=== PATIENT | female | born 1955 | race Caucasian/White ===

== ENCOUNTER 2019-01-13 19:51 | Inpatient (IN) | payer OTHER ==
[2019-01-13 21:16] LABS: Anisocytosis Slight; Basophils % (A) 1 %; Eosinophils # (A) 0.1 k/uL (0-0.7); Eosinophils % (A) 3 %; HCT 35.7 % (34.0-46.0); HGB 11.4 gm/dL (11.4-16.0); Hypochromasia Slight; Lymphocytes # (A) 1.5 k/uL (1.0-4.8); Lymphocytes % (A) 34 %; MCH 28.4 pg (25.0-35.0); MCV 88.8 fL (80.0-100.0); Mean Platelet Volume 7.1; Monocytes # (A) 0.3 k/uL (0-1.0); Monocytes % (A) 7 %; Neutrophils # (A) 2.4 k/uL (1.3-7.7); Neutrophils % (A) 53 %; Platelet Count 206 k/uL (150-450); RBC 4.02 m/uL (3.80-5.40); RDW 16.4 % (11.5-15.5); WBC 4.4 k/uL (3.8-10.6)
[2019-01-13 21:17] LABS: Albumin 3.4 g/dL (3.5-5.0); Calcium 8.8 mg/dL (8.4-10.2); Potassium 5.3 mmol/L (3.5-5.1); Total Bilirubin 0.7 mg/dL (0.2-1.3); Total Protein 6.5 g/dL (6.3-8.2)
--- NOTE | 2019-01-13 21:23 | ED ---
Skin/Abscess/FB HPI - General Source: patient Mode of arrival: ambulatory Limitations: no limitations <Bridget Conklin - Last Filed: 01/14/19 01:04> <Porfirio Dozier - Last Filed: 01/14/19 08:32> - General Chief complaint: Skin/Abscess/Foreign Body Stated complaint: rt toe infection Time Seen by Provider: 01/13/19 20:25 - History of Present Illness Initial comments: 63-year-old female patient with past medical history significant for diabetes mellitus, neuropathy, presents to the emergency department today for evaluation of infection to the right fourth toe. Patient states that she has had the infection for quite some time. States that she has seen both infectious disease and a web marketing manager. Their plan was to administer IV antibiotics however her insurance would not cover the antibiotic. States that the web marketing manager wanted to amputate the toe however is going out of town. Both the infectious disease doctor and her primary care physician recommended she present to the emergency department for further evaluation and IV antibiotics. Patient states that there is some pain to the toe however she does have neuropathy. Patient denies any drainage from the wound surrounding the toe. Denies any fever or chills. Patient denies any recent rash, shortness breath, chest pain, abdominal pain, nausea, vomiting, diarrhea, constipation, back pain, numbness, tingling, dizziness, weakness, hematuria, dysuria, urinary urgency, urinary frequency, headache, visual changes, or any other complaints. (Bridget Conklin) - Related Data Home Medications Medication Instructions Recorded Confirmed Aspirin EC [Ecotrin Low Dose] 81 mg PO DAILY 01/13/19 01/13/19 Furosemide [Lasix] 20 - 40 mg PO BID PRN 01/13/19 01/13/19 Allergies Allergy/AdvReac Type Severity Reaction Status Date / Time ciprofloxacin [From Cipro] Allergy Vomiting Verified 01/13/19 21:26 Penicillins Allergy Unknown Verified 01/13/19 21:26 Childhood Review of Systems ROS Other: All systems not noted in ROS Statement are negative. <Bridget Conklin - Last Filed: 01/14/19 01:04> ROS Other: All systems not noted in ROS Statement are negative. <Porfirio Dozier - Last Filed: 01/14/19 08:32> ROS Statement: Those systems with pertinent positive or pertinent negative responses have been documented in the HPI. 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 Vital signs upon presentation are temperature 98.4F, pulse 92, respirations 18, blood pressure 141/89, pulse ox 98% on room air.) Eye exam: Present: normal appearance, PERRL, EOMI. Absent: scleral icterus, conjunctival injection, periorbital swelling ENT exam: Present: normal exam, normal oropharynx, mucous membranes moist Respiratory exam: Present: normal lung sounds bilaterally. Absent: respiratory distress, wheezes, rales, rhonchi, stridor Cardiovascular Exam: Present: regular rate, normal rhythm, normal heart sounds. Absent: systolic murmur, diastolic murmur, rubs, gallop, clicks GI/Abdominal exam: Present: soft, normal bowel sounds. Absent: distended, tenderness, guarding, rebound, rigid Extremities exam: Present: full ROM, normal capillary refill, other (There is erythema and general swelling noted to the right fourth toe. There are ulcerations noted at the base of the toe. No drainage. Skin is otherwise pink, warm, dry. Cap refill is less than 3 seconds. Pedal pulses 2+ and equal bilaterally.). Absent: normal inspection, tenderness, pedal edema, joint swelling, calf tenderness Neurological exam: Present: alert, oriented X3, CN II-XII intact Psychiatric exam: Present: normal affect, normal mood Skin exam: Present: warm, dry, intact, normal color. Absent: rash <Bridget Conklin M - Last Filed: 01/14/19 01:04> Course Vital Signs 01/13/19 01/13/19 01/13/19 19:57 20:03 23:45 Temperature 98.4 F 98.4 F Pulse Rate 92 89 87 Respiratory 18 16 17 Rate Blood Pressure 141/89 147/104 147/104 O2 Sat by Pulse 98 96 96 Oximetry 01/14/19 01/14/19 01:10 01:26 Temperature Pulse Rate 60 88 Respiratory 16 Rate Blood Pressure 157/112 153/106 O2 Sat by Pulse 97 Oximetry Medical Decision Making - Lab Data Result diagrams: 01/13/19 20:59 01/13/19 20:59 - Radiology Data Radiology results: report reviewed, image reviewed <Bridget Conklin - Last Filed: 01/14/19 01:04> - Lab Data Result diagrams: 01/14/19 06:02 01/14/19 06:02 <Porfirio Dozier - Last Filed: 01/14/19 08:32> - Medical Decision Making 63-year-old female patient presented to the emergency department today for evaluation of infection to the right fourth toe. Physical examination did revea l erythema, swelling to the toe. X-ray was performed and showed evidence for osteomyelitis. Labs reviewed and are relatively unremarkable. Case was discussed with the on-call vascular surgeon Dr. Weller who agrees to admit patient for possible amputation. Patient will be started on IV antibiotics for osteomyelitis. Infectious disease will be consulted. Dr. [place] from [facility] group is accepting for medical admission. (Bridget Conklin) I saw this patient in conjunction with the physician physiotherapy assistant. I performed independent history and physical exam. Agree with case management. (Porfirio Dozier) - Lab Data Lab Results 01/13/19 01/13/19 Range/Units 20:59 20:59 WBC 4.4 (3.8-10.6) k/uL RBC 4.02 (3.80-5.40) m/uL Hgb 11.4 (11.4-16.0) gm/dL Hct 35.7 (34.0-46.0) % MCV 88.8 (80.0-100.0) fL MCH 28.4 (25.0-35.0) pg MCHC 32.0 (31.0-37.0) g/dL RDW 16.4 H (11.5-15.5) % Plt Count 206 (150-450) k/uL Neutrophils % 53 % Lymphocytes % 34 % Monocytes % 7 % Eosinophils % 3 % Basophils % 1 % Neutrophils # 2.4 (1.3-7.7) k/uL Lymphocytes # 1.5 (1.0-4.8) k/uL Monocytes # 0.3 (0-1.0) k/uL Eosinophils # 0.1 (0-0.7) k/uL Basophils # 0.0 (0-0.2) k/uL Hypochromasia Slight Anisocytosis Slight Sodium 141 (137-145) mmol/L Potassium 5.3 H (3.5-5.1) mmol/L Chloride 109 H (98-107) mmol/L Carbon Dioxide 22 (22-30) mmol/L Anion Gap 10 mmol/L BUN 33 H (7-17) mg/dL Creatinine 2.06 H (0.52-1.04) mg/dL Est GFR (CKD-EPI)AfAm 29 (>60 ml/min/1.73 sqM) Est GFR (CKD-EPI)NonAf 25 (>60 ml/min/1.73 sqM) Glucose 128 H (74-99) mg/dL Calcium 8.8 (8.4-10.2) mg/dL Total Bilirubin 0.7 (0.2-1.3) mg/dL AST 30 (14-36) U/L ALT 19 (9-52) U/L Alkaline Phosphatase 64 (38-126) U/L Total Protein 6.5 (6.3-8.2) g/dL Albumin 3.4 L (3.5-5.0) g/dL - Radiology Data 3 views of the right fourth digit of the right foot were obtained. Report was reviewed in its entirety. Impression by Dr. Shearer shows extensive soft tissue swelling of the fourth digit circumferentially osseous erosion/resorption of the mid and proximal phalanges of the fourth digit, likely on the basis of osteomyelitis. (Bridget Conklin) Disposition Decision to Admit Reason: Admit from EC Decision Date: 01/14/19 Decision Time: 00:45 <Bridget Conklin - Last Filed: 01/14/19 01:04> <Porfirio Dozier - Last Filed: 01/14/19 08:32> Clinical Impression: Osteomyelitis of fourth toe of right foot Disposition: ADMITTED IP TO THIS [facility] Condition: Serious
--- NOTE | 2019-01-13 21:28 | XR ---
EXAMINATION TYPE: XR toes RT DATE OF EXAM: 01/13/2019 COMPARISON: NONE HISTORY: Pain and swelling in the fourth toe. Diabetic ulcer. TECHNIQUE: 3 views of the fourth digit of the right foot were obtained FINDINGS: There is diffuse circumferential soft tissue swelling of the fourth digit with osseous eros ion and destruction of the middle and proximal phalanges. The proximal phalanx space is maintained. V isualized portions of the third and fifth digits remain intact with old fracture deformity or arthrop athy of the distal third metatarsal head. No subcutaneous emphysema or radiopaque foreign body. IMPRESSION: Extensive soft tissue swelling of the fourth digit circumferentially and osseous erosion/ resorption of the mid and proximal phalanges of the fourth digit, likely on the basis of osteomyeliti s.
[2019-01-13] MEDS ORDERED: VANCOMYCIN IV PER PHARMACY 1 EACH MISC MISCELLANE PRN (23:49)
[2019-01-13] MEDS ORDERED: NALOXONE 0.4 MG/ML 1 ML VIAL IV PRN (23:50)
[2019-01-13] MEDS ORDERED: VANCOMYCIN 1,500 MG in SODIUM CHLORIDE 0.9% 250 ML IVPB STA (23:51)
[2019-01-14] MEDS: SODIUM CHLORIDE 0.9% 1,000 ML IV SCH ×2 (00:28→20:27)
[2019-01-14] MEDS ORDERED: LISINOPRIL 20 MG TAB PO STA (00:41)
[2019-01-14] MEDS ORDERED: FUROSEMIDE 20 MG TAB PO STA (00:41)
--- NOTE | 2019-01-14 04:52 | P.HPIM ---
History of Present Illness H&P Date: 01/14/19 Chief Complaint: Right toe infection The patient is a 63-year-old female patient with past medical history significant for MS, coronary artery disease with stenting 1, ischemic cardiomyopathy , systolic CHF with last known ejection fraction of 45%, diet-controlled diabetes mellitus, peripheral neuropathy and chronic kidney disease presents to the emergency department today for evaluation of infection to the right fourth toe. Patient states that she has had the infection for approximately 6 weeks, reports she was initially seen by her PCP ANGELI Shelton and was started on antibiotics 1 of which was Bactrim, she subsequently followed up with her child care sitter who instructed her not to take Bactrim due to concern for worsening kidney function. The patient followed up with infectious disease energy consultant in [place] on Wednesday and their plan was to administer IV antibiotics however her insurance would not cover the antibiotic. On the patient saw podiatry who recommended amputation of the toe however is going out of town. Both the infectious disease doctor and her primary care physician recommended she present to the emergency department for further evaluation and IV antibiotics. Patient states that there is some pain to the toe however she does have neuropathy. Patient denies any drainage from the wound surrounding the toe. She denies any significant pain, Denies any fever or chills. Patient denies any recent rash, shortness breath, chest pain, abdominal pain, nausea, vomiting, diarrhea, constipation, back pain, numbness, tingling, dizziness, weakness, hematuria, dysuria, urinary urgency, urinary frequency, headache, visual changes, or any other complaints. In the ER the patient had a x-ray of her right foot that showed extensive soft tissue swelling of the right fourth digit circumferentially with osseous erosion resumption of the mid and proximal phalanges of the 4 digit likely osteomyelitis. White count was 4.4 hemoglobin is 11.4, serum potassium 5.3, creatinine 2.06, blood sugar 128. 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 History of Any Multi-Drug Resistant Organisms: None Reported Past Surgical History: Appendectomy, Heart Catheterization With Stent, Orthopedic Surgery Past Anesthesia/Blood Transfusion Reactions: No Reported Reaction Date of Last Stent Placement:: 01/29 Past Psychological History: No Psychological Hx Reported Smoking Status: Never smoker Past Alcohol Use History: None Reported Past Drug Use History: None Reported Medications and Allergies Home Medications Medication Instructions Recorded Confirmed Type Aspirin EC [Ecotrin Low Dose] 81 mg PO DAILY 01/13/19 01/13/19 History Furosemide [Lasix] 20 - 40 mg PO BID PRN 01/13/19 01/13/19 History Allergies Allergy/AdvReac Type Severity Reaction Status Date / Time ciprofloxacin [From Cipro] Allergy Vomiting Verified 01/13/19 21:26 Penicillins Allergy Unknown Verified 01/13/19 21:26 Childhood Physical Exam Vitals: Vital Signs Temp Pulse Pulse Resp BP BP Pulse Ox 01/14/19 04:39 97.4 F L 76 16 134/85 93 L 01/14/19 02:49 97.6 F 87 18 145/95 97 01/14/19 02:10 78 17 138/82 97 01/14/19 01:26 88 153/106 01/14/19 01:10 60 16 157/112 97 01/13/19 23:45 87 17 147/104 96 01/13/19 20:03 98.4 F 89 16 147/104 96 01/13/19 19:57 98.4 F 92 18 141/89 98 Intake and Output 01/13/19 01/13/19 01/14/19 14:59 22:59 06:59 Other: Voiding Method Toilet # Voids 3 Weight 77.111 kg Constitutional: No acute distress, conversant, pleasant Eyes: Anicteric sclerae, moist conjunctiva, no lid-lag, PERRLA ENMT: NC/AT,Oropharynx clear, no erythema, exudates Neck:Supple, FROM, no masses, or JVD, No carotid bruits; No thyromegaly Lungs: Clear to auscultation, Clear to percussion, Normal respiratory effort, no accessory muscle use Cardiovascular: Heart regular in rate and rhythm, No murmurs, gallops, or rubs no peripheral edema Abdominal: Soft Nontender, nom distended, no guarding, no rebound or rigidity, Normoactive bowel sounds No hepatomegaly, No splenomegaly, No palpable mass No abdominal wall hernia noted Skin: Normal temperature, tone, texture, turgor, No induration No subcutaneous nodules, No rash, lesions, No ulcers Extremities: Mild erythema of the right fourth toe with ulcerations at the base of the toe. Psychiatric: Alert and oriented to person, place and time, Appropriate affect Intact judgement Neuro: Muscles Strength 5/5 in all 4 extremities, Sensation to light touch grossly present throughout, Cranial nerves II-XII grossly intact. No focal sensory deficits Results CBC & Chem 7: 01/13/19 20:59 01/13/19 20:59 Labs: Abnormal Lab Results - Last 24 Hours (Table) 01/13/19 01/13/19 Range/Units 20:59 20:59 RDW 16.4 H (11.5-15.5) % Potassium 5.3 H (3.5-5.1) mmol/L Chloride 109 H (98-107) mmol/L BUN 33 H (7-17) mg/dL Creatinine 2.06 H (0.52-1.04) mg/dL Glucose 128 H (74-99) mg/dL Albumin 3.4 L (3.5-5.0) g/dL Thrombosis Risk Factor Assmnt - Choose All That Apply Each Factor Represents 1 point: Obesity (BMI >25) Thrombosis Risk Factor Assessment Total Risk Factor Score: 1 Thrombosis Risk Factor Assessment Level: Low Risk Assessment and Plan (1) Osteomyelitis of fourth toe of right foot Current Visit: Yes Status: Acute Code(s): M86.9 - OSTEOMYELITIS, UNSPECIFIED SNOMED Code(s): 473250154 (2) Type 2 diabetes mellitus Current Visit: Yes Status: Acute Code(s): E11.9 - TYPE 2 DIABETES MELLITUS WITHOUT COMPLICATIONS SNOMED Code(s): 55462478 (3) Chronic systolic CHF (congestive heart failure) Current Visit: Yes Status: Acute Code(s): I50.22 - CHRONIC SYSTOLIC (CONGESTIVE) HEART FAILURE SNOMED Code(s): 162654784 (4) Chronic kidney disease, stage IV (severe) Current Visit: Yes Status: Acute Code(s): N18.4 - CHRONIC KIDNEY DISEASE, STAGE 4 (SEVERE) SNOMED Code(s): 544752553 (5) Coronary artery disease Current Visit: Yes Status: Acute Code(s): I25.10 - ATHSCL HEART DISEASE OF [place] CORONARY ARTERY W/O ANG PCTRS SNOMED Code(s): 76686839 (6) Hyperkalemia Current Visit: Yes Status: Acute Code(s): E87.5 - HYPERKALEMIA SNOMED Code(s): 84834598 (7) Diabetic neuropathy Current Visit: Yes Status: Acute Code(s): E11.40 - TYPE 2 DIABETES MELLITUS WITH DIABETIC NEUROPATHY, UNSP SNOMED Code(s): 655282515 Plan: The patient is admitted anticipated greater than 2 midnight stay with osteomyelitis of the right fourth toe that has apparently has failed outpatient therapy with antibiotics. The patient was recommended to have amputation by her sheet finisher but was unable to have it done. X-ray of the foot is also suggesting osteomyelitis, patient was started on empiric IV antibiotics with vancomycin and Zosyn. We'll continue to monitor electrolytes as a patient does have chronic kidney disease and also mild hyperkalemia on admission labs. ID Dr. Munoz is been consulted for further recommendations, apparently podiatry is market consultant this weekend however ER physician contacted vascular Dr. Weller who is willing to perform amputation. Patient is not septic and is hemodynamically stable at this time, we'll continue diabetic diet with Accu-Cheks with correctional scale insulin coverage will check A1c, and CRP and we'll await further recommendations from consultants. Continue the follow the patient's clinical course. CODE STATUS: Full code Discussed plan of care with: Patient The patient's DURABLE POWER OF COASTAL AND ESTUARY SPECIALIST: Kenneth Anticipated discharge: 2-[address]: Home Prophylaxis: Heparin Time with Patient: Greater than 30
[2019-01-14] MEDS ORDERED: NALOXONE 0.4 MG/ML 1 ML VIAL IV PRN (05:38)
[2019-01-14] MEDS ORDERED: ACETAMINOPHEN TAB 325 MG TAB PO PRN (05:38)
[2019-01-14 06:44] LABS: Basophils % (A) 1 %; Eosinophils # (A) 0.1 k/uL (0-0.7); Eosinophils % (A) 3 %; HCT 36.3 % (34.0-46.0); HGB 11.2 gm/dL (11.4-16.0); Hypochromasia Slight; Lymphocytes # (A) 1.6 k/uL (1.0-4.8); Lymphocytes % (A) 41 %; MCH 27.4 pg (25.0-35.0); MCHC 30.9 g/dL (31.0-37.0); MCV 88.8 fL (80.0-100.0); Monocytes # (A) 0.2 k/uL (0-1.0); Monocytes % (A) 5 %; Neutrophils # (A) 1.8 k/uL (1.3-7.7); Neutrophils % (A) 46 %; Platelet Count 205 k/uL (150-450); RBC 4.08 m/uL (3.80-5.40); RDW 15.9 % (11.5-15.5); WBC 3.9 k/uL (3.8-10.6)
[2019-01-14 06:52] LABS: Glucose,Whole Blood 102 mg/dL (75-99)
[2019-01-14 06:57] LABS: African American GFR (CKD) 30 (>60 ml/min/1.73 sqM); Anion Gap 9 mmol/L; Blood Urea Nitrogen 31 mg/dL (7-17); C Reactive Protein <5.0 mg/L (<10.0); Calcium 8.8 mg/dL (8.4-10.2); Carbon Dioxide 23 mmol/L (22-30); Chloride 108 mmol/L (98-107); Glucose 110 mg/dL (74-99); Potassium 4.6 mmol/L (3.5-5.1); Sodium 140 mmol/L (137-145)
[2019-01-14] MEDS: INSULIN ASPART (NovoLOG) 100 UNIT/ML VIAL SQ SCH ×4 (08:24→20:22)
[2019-01-14] MEDS: ASPIRIN 81 MG PO SCH ×2 (08:41→08:42)
[2019-01-14] MEDS: HEPARIN SODIUM,PORCINE 5,000 UNIT/ML 1 ML VIAL SQ SCH ×2 (08:42→16:35)
[2019-01-14] MEDS: PIPERACILLIN-TAZOBACTAM 3.375 GM in SODIUM CHLORIDE 0.9% 100 ML IVPB SCH ×2 (08:42→16:35)
--- NOTE | 2019-01-14 09:48 | P.PN ---
Progress Note - Text Progress Note Date: 01/14/19 Hospitalist Interval Note Patient seen and examined at bedside. Pain is controlled and her right toe. No nausea, vomiting, or diarrhea. Typically her diabetes is diet controlled. She was seeing a specialist for this right toe cellulitis who incised cold sides of her toe. She is unsure if he is infectious disease or podiatry, and she was unsure of name. Vital signs reviewed General: non toxic, no distress, appears at stated age Derm: Right fourth toe with extensive swelling, warmth, and erythema warm, dry Head: atraumatic, normocephalic, symmetric Eyes: EOMI, no lid lag, anicteric sclera Mouth: no lip lesion, mucus membranes moist Cardiovascular: S1S2 reg, no murmur, positive posterior tibial pulse bilateral, Lungs: CTA bilateral, no rhonchi, no rales , no accessory muscle use Abdominal: soft, nontender to palpation, no guarding, no appreciable organomegaly Ext: no gross muscle atrophy, 2+ edema, no contractures Neuro: CN II-XI grossly intact, no focal neuro deficits Psych: Alert, oriented, appropriate affect Assessment/Plan: Right lower toe osteomyelitis-continue with Clara Mendez, await ID and vascular surgery recommendations, pain control Diabetes mellitus type 2-diet controlled, last A1c 6.9, continue with sliding scale insulin in monitoring of blood sugars This is an update note for patient , for full note on 01/14/19 see H&P. There is no charge associated with this note.
[2019-01-14 11:21] LABS: Glucose,Whole Blood 115 mg/dL (75-99)
--- NOTE | 2019-01-14 12:16 | P.GSCN ---
History of Present Illness Consult date: 01/14/19 Reason for Consult: Gangrenous right fourth toe, diabetes History of present illness: The patient is a 63-year-old female with a past medical history of coronary artery disease with stents, myocardial infarction, ischemic cardiomyopathy, systolic congestive heart failure, diabetes mellitus, hyperlipidemia, hypertension and chronic kidney disease who presented to the emergency department for worsening infection of her right fourth toe. She's had this infection for many weeks reportedly and has been seeing her primary care physician along with infectious disease physician. She was unable to undergo IV antibiotic coverage due to insurance reasons. She saw the poultry dressing worker's recently this week who recommended an amputation. It was recommended that she present to the ER for further evaluation and IV antibiotics. She denies any pain at this point patient is a fevers or chills nausea or vomiting or diarrhea. She denies any pain in her legs other than her neuropathy. 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 History of Any Multi-Drug Resistant Organisms: None Reported Past Surgical History: Appendectomy, Heart Catheterization With Stent, Orthopedic Surgery Past Anesthesia/Blood Transfusion Reactions: No Reported Reaction Date of Last Stent Placement:: 01/29 Past Psychological History: No Psychological Hx Reported Smoking Status: Never smoker Past Alcohol Use History: None Reported Past Drug Use History: None Reported Medications and Allergies Home Medications Medication Instructions Recorded Confirmed Type Aspirin EC [Ecotrin Low Dose] 81 mg PO DAILY 01/13/19 01/13/19 History Furosemide [Lasix] 20 - 40 mg PO BID PRN 01/13/19 01/13/19 History Allergies Allergy/AdvReac Type Severity Reaction Status Date / Time ciprofloxacin [From Cipro] Allergy Vomiting Verified 01/13/19 21:26 Penicillins Allergy Unknown Verified 01/13/19 21:26 Childhood Surgical - Exam Vital Signs Temp Pulse Resp BP Pulse Ox 98.4 F 92 18 141/89 98 01/13/19 19:57 01/13/19 19:57 01/13/19 19:57 01/13/19 19:57 01/13/19 19:57 General: Pleasant cooperative female in no acute distress resting comfortably HEENT: Normocephalic, atraumatic, extraocular motion intact Heart: Regular rate and rhythm Lungs: No respiratory distress, room air Abdomen: Soft, nontender, nondistended Extremities: No clubbing, cyanosis, minimal peripheral edema in the lower extremities Vascular: Palpable radial, femoral, popliteal and dorsalis pedis pulses bilaterally Right fourth toe with induration. No active drainage or discharge Results - Labs 01/14/19 06:02 01/14/19 06:02 Abnormal Lab Results - Last 24 Hours (Table) 01/13/19 01/13/19 01/14/19 Range/Units 20:59 20:59 06:02 Hgb (11.4-16.0) gm/dL MCHC (31.0-37.0) g/dL RDW 16.4 H (11.5-15.5) % Potassium 5.3 H (3.5-5.1) mmol/L Chloride 109 H 108 H (98-107) mmol/L BUN 33 H 31 H (7-17) mg/dL Creatinine 2.06 H 2.04 H (0.52-1.04) mg/dL Glucose 128 H 110 H (74-99) mg/dL POC Glucose (mg/dL) (75-99) mg/dL Albumin 3.4 L (3.5-5.0) g/dL 01/14/19 01/14/19 01/14/19 Range/Units 06:02 06:51 11:20 Hgb 11.2 L (11.4-16.0) gm/dL MCHC 30.9 L (31.0-37.0) g/dL RDW 15.9 H (11.5-15.5) % Potassium (3.5-5.1) mmol/L Chloride (98-107) mmol/L BUN (7-17) mg/dL Creatinine (0.52-1.04) mg/dL Glucose (74-99) mg/dL POC Glucose (mg/dL) 102 H 115 H (75-99) mg/dL Albumin (3.5-5.0) g/dL Diabetes panel 01/13/19 01/14/19 Range/Units 20:59 06:02 Sodium 141 140 (137-145) mmol/L Potassium 5.3 H 4.6 (3.5-5.1) mmol/L Chloride 109 H 108 H (98-107) mmol/L Carbon Dioxide 22 23 (22-30) mmol/L BUN 33 H 31 H (7-17) mg/dL Creatinine 2.06 H 2.04 H (0.52-1.04) mg/dL Glucose 128 H 110 H (74-99) mg/dL Calcium 8.8 8.8 (8.4-10.2) mg/dL AST 30 (14-36) U/L ALT 19 (9-52) U/L Alkaline Phosphatase 64 (38-126) U/L Total Protein 6.5 (6.3-8.2) g/dL Albumin 3.4 L (3.5-5.0) g/dL Calcium panel 01/13/19 01/14/19 Range/Units 20:59 06:02 Calcium 8.8 8.8 (8.4-10.2) mg/dL Albumin 3.4 L (3.5-5.0) g/dL Pituitary panel 01/13/19 01/14/19 Range/Units 20:59 06:02 Sodium 141 140 (137-145) mmol/L Potassium 5.3 H 4.6 (3.5-5.1) mmol/L Chloride 109 H 108 H (98-107) mmol/L Carbon Dioxide 22 23 (22-30) mmol/L BUN 33 H 31 H (7-17) mg/dL Creatinine 2.06 H 2.04 H (0.52-1.04) mg/dL Glucose 128 H 110 H (74-99) mg/dL Calcium 8.8 8.8 (8.4-10.2) mg/dL Adrenal panel 01/13/19 01/14/19 Range/Units 20:59 06:02 Sodium 141 140 (137-145) mmol/L Potassium 5.3 H 4.6 (3.5-5.1) mmol/L Chloride 109 H 108 H (98-107) mmol/L Carbon Dioxide 22 23 (22-30) mmol/L BUN 33 H 31 H (7-17) mg/dL Creatinine 2.06 H 2.04 H (0.52-1.04) mg/dL Glucose 128 H 110 H (74-99) mg/dL Calcium 8.8 8.8 (8.4-10.2) mg/dL Total Bilirubin 0.7 (0.2-1.3) mg/dL AST 30 (14-36) U/L ALT 19 (9-52) U/L Alkaline Phosphatase 64 (38-126) U/L Total Protein 6.5 (6.3-8.2) g/dL Albumin 3.4 L (3.5-5.0) g/dL Assessment and Plan Assessment: #1 chronic right fourth toe osteomyelitis #2 diabetes mellitus #3 coronary artery disease, history of UT with stent #4 chronic kidney disease Plan: There is obvious chronic osteomyelitis of the right fourth toe, this time there is no evidence of wet gangrene. There is no emergent need for amputation. Will schedule for the next few days, from our standpoint this patient could even be done as an outpatient pending performance improvement consultant recommendations.
[2019-01-14 14:25] LABS: Hemoglobin A1C 6.5 % (4.0-6.0)
[2019-01-14] MEDS ORDERED: DIPH,PERTUS(ACELL)TETVAC-LF 0.5 ML VIAL IM ONE (16:55)
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
[2019-01-14 16:58] LABS: Glucose,Whole Blood 132 mg/dL (75-99)
[2019-01-14] MEDS: FUROSEMIDE 40 MG TAB PO SCH (17:39)
[2019-01-14] MEDS: MULTIVITAMINS, THERA 1 EACH TAB PO SCH (17:39)
[2019-01-14 20:06] LABS: Glucose,Whole Blood 117 mg/dL (75-99)
[2019-01-15] MEDS: HEPARIN SODIUM,PORCINE 5,000 UNIT/ML 1 ML VIAL SQ SCH ×3 (00:16→16:07)
[2019-01-15] MEDS: PIPERACILLIN-TAZOBACTAM 3.375 GM in SODIUM CHLORIDE 0.9% 100 ML IVPB SCH ×4 (00:18→23:32)
[2019-01-15] MEDS ORDERED: VANCOMYCIN 1,500 MG in SODIUM CHLORIDE 0.9% 250 ML IVPB ONE (01:00)
[2019-01-15 07:12] LABS: Glucose,Whole Blood 80 mg/dL (75-99)
[2019-01-15 07:26] LABS: Anisocytosis Slight; Basophils % (A) 1 %; Eosinophils # (A) 0.2 k/uL (0-0.7); Eosinophils % (A) 5 %; HCT 38.5 % (34.0-46.0); HGB 11.7 gm/dL (11.4-16.0); Hypochromasia Slight; Lymphocytes # (A) 1.5 k/uL (1.0-4.8); Lymphocytes % (A) 44 %; MCH 27.9 pg (25.0-35.0); MCHC 30.4 g/dL (31.0-37.0); MCV 91.5 fL (80.0-100.0); Mean Platelet Volume 7.3; Monocytes # (A) 0.2 k/uL (0-1.0); Monocytes % (A) 6 %; Neutrophils # (A) 1.4 k/uL (1.3-7.7); Neutrophils % (A) 41 %; Platelet Count 200 k/uL (150-450); RDW 16.9 % (11.5-15.5); WBC 3.4 k/uL (3.8-10.6)
[2019-01-15 07:31] LABS: Calcium 8.9 mg/dL (8.4-10.2); Potassium 4.2 mmol/L (3.5-5.1)
[2019-01-15] MEDS: INSULIN ASPART (NovoLOG) 100 UNIT/ML VIAL SQ SCH ×4 (07:46→20:10)
[2019-01-15] MEDS: ASPIRIN 81 MG PO SCH (07:47)
[2019-01-15] MEDS: FUROSEMIDE 40 MG TAB PO SCH (07:47)
--- NOTE | 2019-01-15 09:43 | P.PN ---
Subjective Progress Note Date: 01/15/19 Patient reported that she is doing better she is waiting for her if the evaluation of the right fourth toe by the vascular surgeon. She stated that she never had pain but her right fourth toe has been swollen and red lately. Patient reported things are not getting worse rather it is getting better and fe eling. Patient denies chest pain, palpitation, diaphoresis, fever, chills, headaches, dizziness and denies rest of the review system. Nurses reported that patient has been seen by Dr. Irizarry and patient will be scheduled for possible amputation of the right fourth toe due to chronic osteomyelitis and no response to conservative management. Patient renal function were reviewed and noted CKD stage IV which is stable. Objective - Vital Signs Vital signs: Vital Signs Temp 98.3 F 01/15/19 08:00 Pulse 84 01/15/19 08:00 Resp 16 01/15/19 08:00 BP 145/90 01/15/19 08:00 Pulse Ox 96 01/15/19 08:00 Intake & Output 01/14/19 01/15/19 01/15/19 18:59 06:59 18:59 Intake Total 590 Balance 590 Intake: Oral 590 Other: Voiding Method Toilet Toilet Toilet # Voids 3 2 - Constitutional General appearance: Present: cooperative, no acute distress - EENT Eyes: Present: EOMI, normal appearance ENT: Present: hearing grossly normal, NA/AT - Respiratory Respiratory: bilateral: CTA, negative: rales, rhonchi, wheezing - Cardiovascular Rhythm: regular Heart sounds: normal: S1, S2 Abnormal Heart Sounds: Absent: systolic murmur, diastolic murmur, S3 Gallop, S4 Gallop - Gastrointestinal General gastrointestinal: Present: normal bowel sounds, soft. Absent: distended, rigid, tenderness - Neurologic Neurologic: Present: CNII-XII intact. Absent: focal deficits - Psychiatric Psychiatric: Present: A&O x's 3, appropriate affect, intact judgment & insight - Allied health notes Allied health notes reviewed: nursing - Labs CBC & Chem 7: 01/15/19 06:50 01/15/19 06:50 Labs: Abnormal Lab Results - Last 24 Hours (Table) 01/14/19 01/14/19 01/14/19 Range/Units 06:05 11:20 16:57 WBC (3.8-10.6) k/uL MCHC (31.0-37.0) g/dL RDW (11.5-15.5) % Chloride (98-107) mmol/L BUN (7-17) mg/dL Creatinine (0.52-1.04) mg/dL POC Glucose (mg/dL) 115 H 132 H (75-99) mg/dL Hemoglobin A1c 6.5 H (4.0-6.0) % 01/14/19 01/15/19 01/15/19 Range/Units 20:05 06:50 06:50 WBC 3.4 L (3.8-10.6) k/uL MCHC 30.4 L (31.0-37.0) g/dL RDW 16.9 H (11.5-15.5) % Chloride 109 H (98-107) mmol/L BUN 29 H (7-17) mg/dL Creatinine 2.15 H (0.52-1.04) mg/dL POC Glucose (mg/dL) 117 H (75-99) mg/dL Hemoglobin A1c (4.0-6.0) % Microbiology - Last 24 Hours (Table) 01/14/19 01:34 Blood Culture - Preliminary Blood No Growth after 24 hours 01/13/19 21:00 Blood Culture - Preliminary Blood No Growth after 24 hours Assessment and Plan (1) Osteomyelitis of fourth toe of right foot Current Visit: Yes Status: Acute Priority: High Code(s): M86.9 - OSTEOMYELITIS, UNSPECIFIED SNOMED Code(s): 312860860 (2) Type 2 diabetes mellitus Current Visit: Yes Status: Acute Priority: High Code(s): E11.9 - TYPE 2 DIABETES MELLITUS WITHOUT COMPLICATIONS SNOMED Code(s): 77283724 (3) Chronic kidney disease, stage IV (severe) Current Visit: Yes Status: Acute Priority: Medium Code(s): N18.4 - CHRONIC KIDNEY DISEASE, STAGE 4 (SEVERE) SNOMED Code(s): 526082146 (4) Coronary artery disease Current Visit: No Status: Acute Priority: Medium Code(s): I25.10 - ATHSCL HEART DISEASE OF [place] CORONARY ARTERY W/O ANG PCTRS SNOMED Code(s): 39163671 (5) Diabetic neuropathy Current Visit: No Status: Acute Priority: Medium Code(s): E11.40 - TYPE 2 DIABETES MELLITUS WITH DIABETIC NEUROPATHY, UNSP SNOMED Code(s): 614033344 (6) Chronic systolic CHF (congestive heart failure) Current Visit: No Status: Acute Priority: Medium Code(s): I50.22 - CHRONIC SYSTOLIC (CONGESTIVE) HEART FAILURE SNOMED Code(s): 804037877 Plan: Patient is clinically improving I will continue current management for now. Antibiotics will be continued and it is controlling the infection which is not spreading further. Rescue surgery is going to reevaluate patient tomorrow and then decide for amputation. Patient blood sugar will be made monitored regularly and sliding scale coverage will be continued. No changes in the current management as suggested this point in time. Time with Patient: Less than 30
--- NOTE | 2019-01-15 10:53 | P.PN ---
Subjective Progress Note Date: 01/15/19 Principal diagnosis: Right 4th toe osteo Patient seen and examined. No new events overnight. No complaints. Toe feels unstable when walking per patient. No fevers, chills, nausea, chest pain or sob. Currently on antibiotics. Objective - Vital Signs Vital signs: Vital Signs Temp 98.3 F 01/15/19 08:00 Pulse 84 01/15/19 08:00 Resp 16 01/15/19 08:00 BP 145/90 01/15/19 08:00 Pulse Ox 96 01/15/19 08:00 Intake & Output 01/14/19 01/15/19 01/15/19 18:59 06:59 18:59 Intake Total 590 Balance 590 Intake: Oral 590 Other: Voiding Method Toilet Toilet Toilet # Voids 3 2 - Exam right 4th toe swollen, minimal tenderness. Minimal erythema. Palpable DP pulses bilaterally. 1+ edema RLE. - Constitutional General appearance: Present: average body habitus, cooperative - EENT Eyes: Present: PERRLA - Respiratory Respiratory: bilateral: CTA - Cardiovascular Rhythm: regular - Gastrointestinal General gastrointestinal: Absent: distended - Psychiatric Psychiatric: Present: A&O x's 3, appropriate affect, intact judgment & insight - Labs CBC & Chem 7: 01/15/19 06:50 01/15/19 06:50 Labs: Abnormal Lab Results - Last 24 Hours (Table) 01/14/19 01/14/19 01/14/19 Range/Units 06:05 11:20 16:57 WBC (3.8-10.6) k/uL MCHC (31.0-37.0) g/dL RDW (11.5-15.5) % Chloride (98-107) mmol/L BUN (7-17) mg/dL Creatinine (0.52-1.04) mg/dL POC Glucose (mg/dL) 115 H 132 H (75-99) mg/dL Hemoglobin A1c 6.5 H (4.0-6.0) % 01/14/19 01/15/19 01/15/19 Range/Units 20:05 06:50 06:50 WBC 3.4 L (3.8-10.6) k/uL MCHC 30.4 L (31.0-37.0) g/dL RDW 16.9 H (11.5-15.5) % Chloride 109 H (98-107) mmol/L BUN 29 H (7-17) mg/dL Creatinine 2.15 H (0.52-1.04) mg/dL POC Glucose (mg/dL) 117 H (75-99) mg/dL Hemoglobin A1c (4.0-6.0) % Microbiology - Last 24 Hours (Table) 01/14/19 01:34 Blood Culture - Preliminary Blood No Growth after 24 hours 01/13/19 21:00 Blood Culture - Preliminary Blood No Growth after 24 hours Assessment and Plan Assessment: 1. chronic right fourth toe osteomyelitis 2. diabetes mellitus 3. coronary artery disease, history of ND with stent 4. chronic kidney disease Plan: OR scheduled for wednesday with Dr. Irizarry for amputation of the 4th toe. continue antibiotics per ID.
[2019-01-15 11:21] LABS: Glucose,Whole Blood 156 mg/dL (75-99)
[2019-01-15] MEDS: MULTIVITAMINS, THERA 1 EACH TAB PO SCH (12:39)
[2019-01-15 17:04] LABS: Glucose,Whole Blood 110 mg/dL (75-99)
[2019-01-15 20:05] LABS: Glucose,Whole Blood 157 mg/dL (75-99)
[2019-01-16] MEDS: HEPARIN SODIUM,PORCINE 5,000 UNIT/ML 1 ML VIAL SQ SCH ×3 (00:11→16:50)
[2019-01-16 06:54] LABS: Glucose,Whole Blood 91 mg/dL (75-99)
[2019-01-16] MEDS: INSULIN ASPART (NovoLOG) 100 UNIT/ML VIAL SQ SCH ×4 (07:25→20:14)
[2019-01-16 07:45] LABS: Calcium 8.7 mg/dL (8.4-10.2); Potassium 4.8 mmol/L (3.5-5.1)
[2019-01-16] MEDS: SODIUM CHLORIDE 0.9% 1,000 ML IV SCH (07:57)
[2019-01-16] MEDS: FUROSEMIDE 40 MG TAB PO SCH (07:57)
--- NOTE | 2019-01-16 08:16 | P.PN ---
Subjective Progress Note Date: 01/16/19 Patient seen and examined. No complaints. Feeling a little volume overloaded and her legs Objective - Vital Signs Vital signs: Vital Signs Temp 97.5 F L 01/16/19 05:00 Pulse 79 01/16/19 05:00 Resp 18 01/16/19 05:00 BP 147/98 01/16/19 05:00 Pulse Ox 97 01/16/19 05:00 Intake & Output 01/15/19 01/16/19 01/16/19 18:59 06:59 18:59 Intake Total 510 Balance 510 Intake: Intake, IV Titration 60 Amount Sodium Chloride 0.9% 1, 60 000 ml @ 20 mls/hr IV . Q24H [facility] Rx#:[id number] Oral 450 Other: Voiding Method Toilet Toilet # Voids 4 1 - Exam No acute distress, sitting up comfortably Heart regular Lungs clear no respiratory distress Abdomen soft Extremities mild edema, right fourth toe erythematous as previous - Labs CBC & Chem 7: 01/15/19 06:50 01/16/19 06:54 Labs: Abnormal Lab Results - Last 24 Hours (Table) 01/15/19 01/15/19 01/15/19 Range/Units 11:19 17:03 20:02 BUN (7-17) mg/dL Creatinine (0.52-1.04) mg/dL POC Glucose (mg/dL) 156 H 110 H 157 H (75-99) mg/dL 01/16/19 Range/Units 06:54 BUN 31 H (7-17) mg/dL Creatinine 2.32 H (0.52-1.04) mg/dL POC Glucose (mg/dL) (75-99) mg/dL Microbiology - Last 24 Hours (Table) 01/14/19 01:34 Blood Culture - Preliminary Blood No Growth after 48 hours 01/13/19 21:00 Blood Culture - Preliminary Blood No Growth after 48 hours Assessment and Plan Assessment: #1 chronic right fourth toe osteomyelitis #2 diabetes mellitus #3 coronary artery disease, history of OR with stent #4 chronic kidney disease Plan: There is obvious chronic osteomyelitis of the right fourth toe, still no evidence of wet gangrene. Plan for OR tomorrow. From a vascular standpoint patient likely could be discharged home on the same day if other consultants in agreement.
[2019-01-16] MEDS: PIPERACILLIN-TAZOBACTAM 3.375 GM in SODIUM CHLORIDE 0.9% 100 ML IVPB SCH ×2 (09:07→20:43)
--- NOTE | 2019-01-16 09:14 | P.PN ---
Subjective Progress Note Date: 01/16/19 Patient reported that she is feeling better and is scheduled for right fourth toe amputation tomorrow morning. Patient denies chest pain, palpitation, diaphoresis, fever, chills, headaches, dizziness and denies rest of the review system. Patient renal function were reviewed and noted CKD stage IV which is now slightly worse than yesterday. Objective - Vital Signs Vital signs: Vital Signs Temp 97.5 F L 01/16/19 05:00 Pulse 79 01/16/19 05:00 Resp 18 01/16/19 05:00 BP 147/98 01/16/19 05:00 Pulse Ox 97 01/16/19 05:00 Intake & Output 01/15/19 01/16/19 01/16/19 18:59 06:59 18:59 Intake Total 510 Balance 510 Intake: Intake, IV Titration 60 Amount Sodium Chloride 0.9% 1, 60 000 ml @ 20 mls/hr IV . Q24H [facility] Rx#:[id number] Oral 450 Other: Voiding Method Toilet Toilet # Voids 4 1 - Constitutional General appearance: Present: cooperative, no acute distress - EENT Eyes: Present: EOMI, normal appearance ENT: Present: hearing grossly normal, NA/AT - Respiratory Respiratory: bilateral: CTA, negative: rales, rhonchi, wheezing - Cardiovascular Rhythm: regular Heart sounds: normal: S1, S2 Abnormal Heart Sounds: Absent: systolic murmur, diastolic murmur, S3 Gallop, S4 Gallop - Gastrointestinal General gastrointestinal: Present: normal bowel sounds, soft. Absent: distended, rigid, tenderness - Neurologic Neurologic: Present: CNII-XII intact. Absent: focal deficits - Psychiatric Psychiatric: Present: A&O x's 3, appropriate affect, intact judgment & insight - Allied health notes Allied health notes reviewed: nursing - Labs CBC & Chem 7: 01/15/19 06:50 01/16/19 06:54 Labs: Abnormal Lab Results - Last 24 Hours (Table) 01/15/19 01/15/19 01/15/19 Range/Units 11:19 17:03 20:02 BUN (7-17) mg/dL Creatinine (0.52-1.04) mg/dL POC Glucose (mg/dL) 156 H 110 H 157 H (75-99) mg/dL 01/16/19 Range/Units 06:54 BUN 31 H (7-17) mg/dL Creatinine 2.32 H (0.52-1.04) mg/dL POC Glucose (mg/dL) (75-99) mg/dL Microbiology - Last 24 Hours (Table) 01/14/19 01:34 Blood Culture - Preliminary Blood No Growth after 48 hours 01/13/19 21:00 Blood Culture - Preliminary Blood No Growth after 48 hours Assessment and Plan (1) Osteomyelitis of fourth toe of right foot Narrative/Plan: Scheduled for amputation tomorrow morning, will continue current management and IV antibiotics for now. Current Visit: Yes Status: Acute Priority: High Code(s): M86.9 - OSTEOMYELITIS, UNSPECIFIED SNOMED Code(s): 055936317 (2) Type 2 diabetes mellitus Narrative/Plan: Blood sugar will be monitored and sliding scale coverage will be continued. Current Visit: Yes Status: Acute Priority: High Code(s): E11.9 - TYPE 2 DIABETES MELLITUS WITHOUT COMPLICATIONS SNOMED Code(s): 67267381 (3) Chronic kidney disease, stage IV (severe) Narrative/Plan: I will check renal function again in the morning and if continues to decline then we will request nephrology evaluation. Current Visit: Yes Status: Acute Priority: Medium Code(s): N18.4 - CHRONIC KIDNEY DISEASE, STAGE 4 (SEVERE) SNOMED Code(s): 030659204 (4) Coronary artery disease Current Visit: No Status: Acute Priority: Medium Code(s): I25.10 - ATHSCL HEART DISEASE OF [place] CORONARY ARTERY W/O ANG PCTRS SNOMED Code(s): 37389587 (5) Diabetic neuropathy Current Visit: No Status: Acute Priority: Medium Code(s): E11.40 - TYPE 2 DIABETES MELLITUS WITH DIABETIC NEUROPATHY, UNSP SNOMED Code(s): 119091674 (6) Chronic systolic CHF (congestive heart failure) Current Visit: No Status: Acute Priority: Medium Code(s): I50.22 - CHRONIC SYSTOLIC (CONGESTIVE) HEART FAILURE SNOMED Code(s): 800207133 Time with Patient: Less than 30
[2019-01-16 11:43] LABS: Glucose,Whole Blood 150 mg/dL (75-99)
[2019-01-16] MEDS: MULTIVITAMINS, THERA 1 EACH TAB PO SCH (13:05)
[2019-01-16 16:58] LABS: Glucose,Whole Blood 145 mg/dL (75-99)
[2019-01-16 20:07] LABS: Glucose,Whole Blood 97 mg/dL (75-99)
[2019-01-17] MEDS: HEPARIN SODIUM,PORCINE 5,000 UNIT/ML 1 ML VIAL SQ SCH ×3 (01:06→14:31)
[2019-01-17] MEDS: SODIUM CHLORIDE 0.9% 1,000 ML IV SCH ×2 (01:49→08:25)
[2019-01-17 07:06] LABS: Glucose,Whole Blood 92 mg/dL (75-99)
[2019-01-17] MEDS: INSULIN ASPART (NovoLOG) 100 UNIT/ML VIAL SQ SCH ×4 (07:30→20:50)
[2019-01-17] MEDS ORDERED: VANCOMYCIN 1,500 MG in SODIUM CHLORIDE 0.9% 250 ML IVPB ONE (08:00)
[2019-01-17] MEDS: ASPIRIN 81 MG PO SCH (08:26)
[2019-01-17 08:29] LABS: Anisocytosis Slight; HCT 35.9 % (34.0-46.0); HGB 11.4 gm/dL (11.4-16.0); Hypochromasia Slight; MCH 27.9 pg (25.0-35.0); MCHC 31.7 g/dL (31.0-37.0); MCV 87.9 fL (80.0-100.0); Mean Platelet Volume 7.2; Platelet Count 225 k/uL (150-450); RBC 4.09 m/uL (3.80-5.40); RDW 16.2 % (11.5-15.5); WBC 4.8 k/uL (3.8-10.6)
[2019-01-17 08:37] LABS: Calcium 8.9 mg/dL (8.4-10.2); Potassium 5.2 mmol/L (3.5-5.1)
[2019-01-17] MEDS ORDERED: IV FLUID CONTINUATION 600 ML IV ONE (10:26)
[2019-01-17] MEDS ORDERED: ONDANSETRON 4 MG/2 ML VIAL IVP ONE (10:45)
[2019-01-17 10:47] LABS: Glucose,Whole Blood 85 mg/dL (75-99)
[2019-01-17] MEDS ORDERED: MIDAZOLAM 2 MG/2 ML VIAL ONE (11:05)
[2019-01-17] MEDS ORDERED: KETAMINE 10 MG/ML 20 ML VIAL ONE (11:05)
[2019-01-17] MEDS ORDERED: fentaNYL (PF) 50 MCG/ML 2 ML AMP ONE (11:05)
[2019-01-17] MEDS ORDERED: hydrALAZINE HCL 20 MG/ML 1 ML VIAL IVP ONE (11:54)
--- NOTE | 2019-01-17 11:54 | P.OP ---
Description of Procedure: SURGEON: Kacie Irizarry DO ASSURANCE MANAGER INSURANCE: None PREOPERATIVE DIAGNOSIS: Chronic osteomyelitis right fourth toe POSTOPERATIVE DIAGNOSIS: Same OPERATION: Right fourth toe amputation ANESTHESIA: IV sedation per anesthesia ESTIMATED BLOOD LOSS: 5 mL SPECIMENS REMOVED: Right fourth toe COMPLICATIONS: None OPERATIVE FINDINGS: The patient is a 63-year-old female who has chronic osteomyelitis of her right fourth toe that has been non-resolving with antibiotics therefore she presents today for amputation. Risks and benefits were discussed. She seemingly understands and is willing to proceed DESCRIPTION OF PROCEDURE: This patient was brought to the operating room, and given IV sedation. The operative foot was prepped and draped in sterile manner. An incision was made at the base of the fourth toe deepened to skin and fascia on plantar and dorsal aspect until we reached the head of the metatarsal bone. There was chronic osteomyelitis of the digit itself but the head of the metatarsal appeared intact with adequate bony cortex. The head of the metatarsal was from the fourth toe.. The tendons were divided in plantar and dorsal aspects. The fourth toe was removed. Hemostasis was achieved with electrocautery the head of the fourth metatarsal was taken back with the R[place]. Base of the wound looked clean, and the wound was copiously irrigated with saline. Tissue was approximated with 3-0 Vicryl interrupted sutures and skin was reapproximated with interrupted sutures of 3-0 nylon Hemostasis was well controlled and pressure dressing was applied. The patient tolerated the procedure well.
[2019-01-17 12:30] LABS: Glucose,Whole Blood 99 mg/dL (75-99)
[2019-01-17] MEDS: MULTIVITAMINS, THERA 1 EACH TAB PO SCH (14:30)
[2019-01-17] MEDS: PIPERACILLIN-TAZOBACTAM 3.375 GM in SODIUM CHLORIDE 0.9% 100 ML IVPB SCH ×2 (14:30→20:49)
[2019-01-17] MEDS: FUROSEMIDE 40 MG TAB PO SCH (16:13)
[2019-01-17 16:24] VITALS: TEMP 97.4
--- NOTE | 2019-01-17 16:41 | P.PN ---
Subjective Progress Note Date: 01/17/19 Patient was seen prior to her surgery in the morning. Patient denies any complaints states she is feeling better. Patient denies fever, chills, headache, dizziness, chest pain, palpitation, diaphoresis, nausea, vomiting and denies rest of the review system. Nurses reported no current issues with her. Patient was asking that after the surgery if she could be discharged home on oral antibiotics. It was explained to the patient that it all depends on the use of anesthesia agent whether she will be able to go home today or we need to monitor her overnight and be discharged in the morning if she remains stable. Objective - Vital Signs Vital signs: Vital Signs Temp 97.4 F L 01/17/19 16:23 Pulse 80 01/17/19 16:23 Resp 17 01/17/19 16:23 BP 145/88 01/17/19 16:23 Pulse Ox 94 L 01/17/19 16:23 Intake & Output 01/16/19 01/17/19 01/17/19 18:59 06:59 18:59 Intake Total 100 570 Output Total 1 Balance 100 569 Intake: IV 100 Intake, IV Titration 100 470 Amount Piperacillin-Tazobactam 3 100 100 .375 gm In Sodium Chloride 0.9% 100 ml @ 25 mls/hr IVPB Q12HR [facility] Rx #:[id number] Sodium Chloride 0.9% 1, 120 000 ml @ 20 mls/hr IV . Q24H [facility] Rx#:[id number] Vancomycin 1,500 mg In 250 Sodium Chloride 0.9% 250 ml @ 125 mls/hr IVPB ONCE ONE Rx#:[id number] Output: Estimated Blood Loss 1 Other: Voiding Method Toilet # Voids 4 2 3 - Constitutional General appearance: Present: cooperative, no acute distress - Respiratory Respiratory: bilateral: CTA, negative: rales, rhonchi, wheezing - Cardiovascular Rhythm: regular Heart sounds: normal: S1, S2 Abnormal Heart Sounds: Absent: systolic murmur, diastolic murmur, S3 Gallop, S4 Gallop - Gastrointestinal General gastrointestinal: Present: normal bowel sounds, soft. Absent: distended, rigid, tenderness - Neurologic Neurologic: Present: CNII-XII intact. Absent: focal deficits - Psychiatric Psychiatric: Present: A&O x's 3, appropriate affect, intact judgment & insight - Allied health notes Allied health notes reviewed: nursing - Labs CBC & Chem 7: 01/17/19 07:50 01/17/19 07:50 Labs: Abnormal Lab Results - Last 24 Hours (Table) 01/16/19 01/17/19 01/17/19 Range/Units 16:54 07:50 07:50 RDW 16.2 H (11.5-15.5) % Potassium 5.2 H (3.5-5.1) mmol/L BUN 33 H (7-17) mg/dL Creatinine 2.41 H (0.52-1.04) mg/dL POC Glucose (mg/dL) 145 H (75-99) mg/dL Microbiology - Last 24 Hours (Table) 01/14/19 01:34 Blood Culture - Preliminary Blood No Growth after 72 hours 01/13/19 21:00 Blood Culture - Preliminary Blood No Growth after 72 hours Assessment and Plan (1) Osteomyelitis of fourth toe of right foot Current Visit: Yes Status: Acute Priority: High Code(s): M86.9 - OSTEOMYELITIS, UNSPECIFIED SNOMED Code(s): 856374529 (2) Type 2 diabetes mellitus Current Visit: Yes Status: Acute Priority: High Code(s): E11.9 - TYPE 2 DIABETES MELLITUS WITHOUT COMPLICATIONS SNOMED Code(s): 52336047 (3) Chronic kidney disease, stage IV (severe) Current Visit: Yes Status: Acute Priority: Medium Code(s): N18.4 - CHRONIC KIDNEY DISEASE, STAGE 4 (SEVERE) SNOMED Code(s): 754895172 (4) Coronary artery disease Current Visit: No Status: Acute Priority: Medium Code(s): I25.10 - ATHSCL HEART DISEASE OF [place] CORONARY ARTERY W/O ANG PCTRS SNOMED Code(s): 28401755 (5) Diabetic neuropathy Current Visit: No Status: Acute Priority: Medium Code(s): E11.40 - TYPE 2 DIABETES MELLITUS WITH DIABETIC NEUROPATHY, UNSP SNOMED Code(s): 074322482 (6) Chronic systolic CHF (congestive heart failure) Current Visit: No Status: Acute Priority: Medium Code(s): I50.22 - CHRONIC SYSTOLIC (CONGESTIVE) HEART FAILURE SNOMED Code(s): 033301262 Plan: In the morning patient's CBC and basic panel was pending but later on came back which showed progressive worsening of her renal function although still in a CKD stage IV category and her antibiotics are being managed by pharmacy per renal function and dozing protocols. Due to her CKD and progressive decline in renal function I will refer her to Dr. Benson for his expert opinion and recommendations. Patient underwent amputation of the right fourth toe due to ch ronic osteoarthritis and tolerated the procedure well. Procedure was done under IV sedation. Postoperatively patient was still sleepy and drowsy when she was transferred to the unit and it was recommended to monitor her over 24 hours/at least overnight and disposition can be discussed and arranged in the morning. Patient verbalizes understanding and agree with the plan. I will continue current management plan for now and patient will be reevaluated in next 24 hours for further disposition issues. Time with Patient: Less than 30
[2019-01-17 17:04] LABS: Glucose,Whole Blood 113 mg/dL (75-99)
[2019-01-17 20:15] LABS: Glucose,Whole Blood 209 mg/dL (75-99)
[2019-01-17] MEDS ORDERED: ASPIRIN-ACET-CAFF 250-250-65MG 1 EACH TAB PO PRN (20:22)
[2019-01-17 21:30] VITALS: RESP 18
[2019-01-18] MEDS: HEPARIN SODIUM,PORCINE 5,000 UNIT/ML 1 ML VIAL SQ SCH ×2 (01:13→08:29)
[2019-01-18] MEDS: SODIUM CHLORIDE 0.9% 1,000 ML IV SCH (01:14)
[2019-01-18 05:02] VITALS: BP 137/88; PULSE 83
[2019-01-18] MEDS ORDERED: VANCOMYCIN TROUGH DUE 1 EACH MISC MISCELLANE ONE (06:00)
[2019-01-18 07:08] LABS: Glucose,Whole Blood 95 mg/dL (75-99)
[2019-01-18 07:59] LABS: Calcium 8.8 mg/dL (8.4-10.2); Magnesium 1.7 mg/dL (1.6-2.3); Potassium 4.5 mmol/L (3.5-5.1)
[2019-01-18] MEDS: FUROSEMIDE 40 MG TAB PO SCH (08:29)
[2019-01-18] MEDS: PIPERACILLIN-TAZOBACTAM 3.375 GM in SODIUM CHLORIDE 0.9% 100 ML IVPB SCH (08:29)
[2019-01-18] MEDS: ASPIRIN 81 MG PO SCH (08:29)
--- NOTE | 2019-01-18 08:36 | P.PN ---
Progress Note - Text Progress Note Date: 01/18/19 Patient s/e. No complaints. feeling well. pain controlled. R 4th toe amp site clean, dry. dressing changed. POD#1 R 4th toe amp continue previous orders. EVELYN best BLE post op shoe to ARACELI rhoades DC from vascular standpoint. F/U 2 weeks
[2019-01-18] MEDS: INSULIN ASPART (NovoLOG) 100 UNIT/ML VIAL SQ SCH ×2 (08:50→13:20)
[2019-01-18 09:36] LABS: Vancomycin,Random 24.6 ug/mL
[2019-01-18 10:19] VITALS: BMI 31.1
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
[2019-01-18 10:59] LABS: Glucose,Whole Blood 188 mg/dL (75-99)
--- NOTE | 2019-01-18 11:22 | P.DS ---
Providers Date of admission: 01/13/19 23:49 Expected date of discharge: 01/18/19 Attending physician: Nilson [place] MD Consults: 01/13/19 23:50 Consult Physician Routine Consulting Provider: Porfirio Weller Consult Reason/Comments: Poss right toe amputation/Osteomyelitis Do you want consulting provider notified?: Already Contacted 01/14/19 01:05 Consult Physician Routine Consulting Provider: Juan Munoz Consult Reason/Comments: Infection/osteomyelitis right fourth toe Do you want consulting provider notified?: Yes 01/17/19 16:36 Consult Physician Routine Consulting Provider: Kevin Benson Consult Reason/Comments: [place] CKD-IV Do you want consulting provider notified?: Yes [facility] care [facility]: 63-year-old female with PMH of CAD post stent, systolic CHF with EF 45%, diabetes mellitus, chronic kidney disease presents to the ED for right fourth toe pain. Patient had seen her PCP and was started on a series of antibiotics. The infection had been going for 6 weeks. Infectious disease was consulted in the outpatient setting and patient was advised for the need of IV antibiotics but insurance would not cover antibiotics. Foot x-ray showed extensive soft tissue swelling and signs of osteomyelitis. Vascular surgery was consulted and patient underwent amputation of the fourth toe on 01/17/2019. She was started on Zosyn and vancomycin for concerns of osteomyelitis during her hospitalization with infectious disease on board. Patient was seen and examined. No acute events overnight. Patient reports well-controlled pain. Looking for to going home. General: [non toxic], [no distress], [appears at stated age] Derm: [warm], [dry] Head: [atraumatic], [normocephalic], [symmetric] Eyes: [EOMI], [no lid lag], [anicteric sclera] Cardiovascular: [S1S2 reg], [no murmur] Lungs: [CTA bilateral], [no rhonchi, no rales] , [no accessory muscle use] Ext: [no gross muscle atrophy], [no edema], [no contractures], [right foot wrapped dressing clean dry and intact] Neuro: [no focal neuro deficits] Psych: [Alert], [oriented], [appropriate affect] Osteomyelitis of the fourth right toe Type 2 diabetes mellitus Acute kidney injury on chronic kidney disease Coronary artery disease Diabetic neuropathy Chronic systolic CHF Patient is post amputation of the fourth to 01/17/2019. Plans: We'll discuss with ID regarding the choice of antibiotics on discharge. [id number] glucose 188. Treated with sliding scale while hospitalized. Plans: Continue diabetic diet at home. Creatinine is slightly worsening from 2.06 on admission to 2.25 on discharge. Nephrology consulted, recommends renal ultrasound. Plans: Ultrasound to be done in the outpatient setting. Repeat BMP in 3 days. Plans: Continue aspirin. Plans: Adequate glycemic control. Pain control with Tylenol. Stable. Plans: Follow-up PCP for initiation of beta melva and possible MILKA inhibitor with improvement in her renal function. Patient underwent amputation of fourth toe 01/17/2019. Cleared by vascular surgery. We'll discuss with infectious disease regarding antibiotic choice for discharge. DC today. Pertinent Studies: Foot x-ray Procedures: Amputation of the fourth toe right foot Patient Condition at Discharge: Serious Plan - Discharge Summary Discharge Rx Participant: No New Discharge Prescriptions: Continue Aspirin EC [Ecotrin Low Dose] 81 mg PO DAILY Furosemide [Lasix] 20 - 40 mg PO BID PRN PRN Reason: Edema Discharge Medication List Aspirin EC [Ecotrin Low Dose] 81 mg PO DAILY 01/13/19 [History] Furosemide [Lasix] 20 - 40 mg PO BID PRN 01/13/19 [History] Follow up Appointment(s)/Referral(s): Gama Flores DO [Primary Care Provider] - 1-2 days Kacie Irizarry DO [STAFF PHYSICIAN] - 2 Weeks [facility], [NON-STAFF] - Juan Munoz MD [STAFF PHYSICIAN] - 1 Week Activity/Diet/Wound Care/Special Instructions: May shower over incision. No soaking. Use post op shoe until seen in office. Cover with gauze dressing at other times for padding/comfort Follow-up with her primary care provider within 1-2 days of discharge. Follow-up with infectious disease within 1 week of discharge. Follow-up with vascular surgery within 1 week of discharge. Please take all medications as advised. Please see your family doctor with regards to initiating beta melva and MILKA inhibitor for systolic CHF. Please see your family doctor for renal ultrasound regarding her elevated creatinine and chronic kidney disease. Discharge Disposition: HOME SELF-CARE
[2019-01-18 13:00] LABS: Appearance,Urine Clear (Clear); Bilirubin,Urine Negative (Negative); Blood,Urine Negative (Negative); Color,Urine Colorless; Glucose,Urine (UA) Negative (Negative); Hyaline Casts,Urine 1 /lpf (0-2); Ketones,Urine Negative (Negative); Leukocyte Esterase,Urine Negative (Negative); Nitrite,Urine Negative (Negative); PH, Urine 5.5 (5.0-8.0); Protein,Urine 2+ (Negative); RBC,Urine 1 /hpf (0-5); Specific Gravity,Urine 1.006 (1.001-1.035); Squamous Epithelial Cell,Urine <1 /hpf (0-4); Urobilinogen,Urine <2.0 mg/dL (<2.0)
[2019-01-18] MEDS: MULTIVITAMINS, THERA 1 EACH TAB PO SCH (13:22)
--- NOTE | 2019-01-18 14:15 | US ---
EXAMINATION TYPE: US kidneys/renal and bladder DATE OF EXAM: 01/18/2019 COMPARISON: NONE CLINICAL HISTORY: issa. no pain. Patient voided before ultrasound exam. EXAM MEASUREMENTS: Right Kidney: 10.5 x 5.2 x 4.2 cm Left Kidney: 10.2 x 4.8 x 5.9 cm Right Kidney: No hydronephrosis or masses seen Left Kidney: No hydronephrosis or masses seen Bladder: Nondistended due to just voided Bilateral Jets not seen There is no evidence for hydronephrosis at this point in time. No nephrolithiasis is seen. No kristen s are identified. The urinary bladder is anechoic. Bilateral ureteral jets are seen. IMPRESSION: No hydronephrosis nor nephrolithiasis.
[2019-01-18] MEDS ORDERED: PIPERACILLIN-TAZOBACTAM 3.375 GM in SODIUM CHLORIDE 0.9% 100 ML IVPB SCH (16:00)
== END 2019-01-18 16:30 | disposition home health service (06) | DRG 617 ==
LOC: EC 19:51 → 3NMEDONC 23:49
PROVIDERS: ADMIT Family Medicine; ATTEND Family Medicine
PROC: 3E0234Z Introduction of Serum, Toxoid and Vaccine into Muscle, Percutaneous Approach (ICD-10-PCS; 2019-01-14)
PROC: 0Y6V0Z0 Detachment at Right 4th Toe, Complete, Open Approach (ICD-10-PCS; principal; 2019-01-17 11:00)
DX: E11.69 Type 2 diabetes mellitus with other specified complication (principal); M86.671 Other chronic osteomyelitis, right ankle and foot; I50.22 Chronic systolic (congestive) heart failure; I13.0 Hypertensive heart and chronic kidney disease with heart failure and stage 1 through stage 4 chronic kidney disease, or unspecified chronic kidney disease; E11.52 Type 2 diabetes mellitus with diabetic peripheral angiopathy with gangrene; N17.0 Acute kidney failure with tubular necrosis; E11.621 Type 2 diabetes mellitus with foot ulcer; E11.42 Type 2 diabetes mellitus with diabetic polyneuropathy; E11.22 Type 2 diabetes mellitus with diabetic chronic kidney disease; N18.4 Chronic kidney disease, stage 4 (severe); E87.5 Hyperkalemia; L97.519 Non-pressure chronic ulcer of other part of right foot with unspecified severity; Z23 Encounter for immunization; I25.5 Ischemic cardiomyopathy; I25.10 Atherosclerotic heart disease of native coronary artery without angina pectoris; E78.5 Hyperlipidemia, unspecified; I25.2 Old myocardial infarction; Z79.82 Long term (current) use of aspirin; Z79.899 Other long term (current) drug therapy; Z90.49 Acquired absence of other specified parts of digestive tract; Z95.5 Presence of coronary angioplasty implant and graft; Z88.1 Allergy status to other antibiotic agents; Z88.0 Allergy status to penicillin
CPT/HCPCS: 36415; 76770; 80048; 80053; 80202; 81001; 83036; 83735; 85025; 85027; 86140; 87040; 88305; 88311; 90715; 96365; 96366; 96368; 99284

== ENCOUNTER → 2019-03-15 | Outpatient (CLI) | payer OTHER | END | disposition home or self-care (01) | LOC: LABWHC1 08:34 | PROVIDERS: ATTEND Thoracic Surgery (Cardiothoracic Vascular Surgery) | DX: L97.514 Non-pressure chronic ulcer of other part of right foot with necrosis of bone (principal); E11.40 Type 2 diabetes mellitus with diabetic neuropathy, unspecified | CPT/HCPCS: 36415; 84134 ==